=== PATIENT | male | born 1965 | race American Indian/Alaskan Native ===

== ENCOUNTER 2019-03-04 10:48 | Day surgery (SDC) | payer OTHER ==
[2019-03-04] MEDS ORDERED: NACL 0.9% 1000 ML 1,000 ML IV SCH (12:00)
--- NOTE | 2019-03-04 12:13 | Anesthesia Day of Surgery ---
Anesthesia Day of Surgery - Day of Surgery Patient Examined: Yes Patient H&P Reviewed: Yes Patient is NPO: Yes
--- NOTE | 2019-03-04 12:13 | Anesthesia Consultation ---
Anesthesia Consult and Med Hx Date of service: 03/04/19 - Airway Anesthetic Teeth Evaluation: Good ROM Head & Neck: Adequate Mental/Hyoid Distance: Adequate Mallampati Class: Class II Intubation Access Assessment: Good - Pulmonary Exam CTA: Yes - Cardiac Exam Cardiac Exam: RRR - Pre-Operative Health Status ASA Pre-Surgery Classification: ASA1 Proposed Anesthetic Plan: MAC - Pulmonary Hx Sleep Apnea: Yes
[2019-03-04] MEDS ORDERED: WATER FOR IRRIG STERILE IR ONE (12:15)
[2019-03-04] MEDS ORDERED: WATER FOR IRRIG STERILE ONE (12:15)
[2019-03-04] MEDS ORDERED: XYLOCAINE 1% 20 mL ONE (12:50)
[2019-03-04] MEDS ORDERED: DIPRIVAN 10 MG/ML IV ONE ×3 (12:50)
--- NOTE | 2019-03-04 12:52 | Operative Report ---
Operative Report Operative Report: Procedure: Colonoscopy with Snare polypectomy, submucosal injection with elevation of colon polyp. Hemoclip application. Multiple hot biopsy polypectomies. Rectal polyp ablation. Attending physician: Jesus Pruitt M.D. Senior Software Analyst: Jesus Pruitt M.D. Indication: Patient is a 53-year-old male who presents for screening colonoscopy. Patient has a family history of colorectal cancer and also personal history of colon polyps. This colonoscopy serves to evaluate patient so that treatment may be directed based on the findings. Consent: Informed consent was obtained after advising the patient and family regarding nature of this procedure, its indications, potential benefits as well as possible complications including but not limited to bleeding perforation and adverse reaction to medication, infection as well as other cardiopulmonary complications. An informed written and verbal consent was then obtained after due opportunity was provided for questions and answers. Monitoring: Patient was monitored continuously with pulse oximetry and electrocardiographic recordings as well as blood pressure recordings. Vital signs remained stable throughout this procedure with no untoward events. Preoperative assessment: Patient was assessed immediately prior to this procedure for capacity to tolerate monitored anesthesia care and moderate sedation as well as general anesthesia. Patient's ASA classification is 2, Mallampati class is 2, Hyomental distance is 3. Instrument: Olympus video colonoscope.: CF-HQ 190L Medications: Propofol given intravenously in divided doses. For details please refer to anesthesia records. Description of procedure: Patient was placed in the left lateral decubitus position after achieving sedation, a digital rectal examination was performed following which the colonoscope was introduced into the anal verge and advanced to the cecum which was identified by the cecal valve, the appendiceal orifice, as well as by the cecal strap and direct transillumination. The colonoscope was subsequently withdrawn with careful inspection of all mucosal surfaces. Patient tolerated this procedure well and was subsequently taken to the recovery room. The following findings were noted. Findings: Patient had a broad-based sessile polyp greater than 1.5 cm seen in the proximal transverse colon . This was elevated with submucosal injection of saline and removed by snare electrocautery and retrieved. A Hemoclip was used to close the polypectomy defect. There was an adjoining 5-6 mm flat polyp in the same area which again was removed by hot biopsy polypectomy and retrieved. In the distal transverse colon, there was a flat 7 mm polyp which again was removed by hot biopsy polypectomy and retrieved. There was densely adherent thick liquid stool seen in the ascending colon and cecum. The descending colon was normal. In the mid sigmoid colon, patient had 2 flat 6 mm polyps removed by hot biopsy polypectomy and retrieved. There was a diminutive flat polyp in the rectum which was ablated completely. There were no additional lesions seen. Patient was noted to have internal hemorrhoids seen on the retroflexed view at the anal verge. Impression: Transverse colon polyp status post snare polypectomy and submucosal injection also, Hemoclip application. Transverse colon polyps status post hot biopsy polypectomy. Sigmoid colon polyps status post hot biopsy polypectomy. Rectal polyp status post ablation Retained stool Internal hemorrhoids. Plan: Follow pathology report. High-fiber diet. Consider repeat colonoscopy in one year due to poor colonoscopic preparation in the ascending colon and also due to the size of the proximal transverse colon polyp.
--- NOTE | 2019-03-04 12:53 | Discharge Summary ---
Short Stay Discharge Plan Activity: advance as tolerated Weight Bearing Status: Weight Bear as Tolerated Diet: regular Follow up with: [facility] [Primary Care Provider] - 7 Days
[2019-03-04 13:20] VITALS: BP 119/78
== END 2019-03-04 10:49 | disposition home or self-care (01) ==
LOC: GIO 10:48
PROVIDERS: ATTEND Internal Medicine Gastroenterology
DX: Z12.11 Encounter for screening for malignant neoplasm of colon (principal); D12.3 Benign neoplasm of transverse colon; K63.5 Polyp of colon; G47.30 Sleep apnea, unspecified; Z80.0 Family history of malignant neoplasm of digestive organs; Z79.899 Other long term (current) drug therapy; Z88.0 Allergy status to penicillin; Z98.890 Other specified postprocedural states
CPT/HCPCS: 88305; J2704; J7030